=== PATIENT | male | born 1965 | race Caucasian/White ===

== ENCOUNTER 2017-07-09 19:54 | Emergency (ER) | payer OTHER ==
[~2017-07-09] VITALS: Ht 172.7 cm; Wt 93.0 kg
[~2017-07-09 19:54] MED LIST: AZITHROMYCIN 2250 MG PO; BACTRIM DS TAB1 EACH PO; BENADRYL25 MG PO; CLEOCIN HCL150 MG PO; COMBIVENT; COMBIVENT INH; DOXYCYCLINE 10100 MG PO; HYDROCODON-ACE1 EAC7 PO; HYDROCODONE-APA1 TA1 PO; IBUPROFEN 800800 M1; KEFLEX250 MG PO; KEFLEX500 MG PO; NOHOMEMEDICATIONS; NORCO 5-325 TA1 EACH PO; PREDNISONE50 MG PO; PRILOSEC 20 MG20 MG; PROAIR HFA8.5 GM IH; VENTOLIN17 GM INH; VICODIN 5-5001 EACH PO
[2017-07-09 19:57] VITALS: BP 119/72
[2017-07-09] MEDS ORDERED: ZPAK PO (20:15)
[2017-07-09] MEDS ORDERED: PREDNISONE 20 M20 M1 PO (20:15)
[2017-07-09] MEDS ORDERED: VENTOLIN HFA 1818 GM INH (20:15)
== END 2017-07-09 20:33 | disposition home or self-care (01) ==
LOC: M.ERS 19:54
DX: S20.361A Insect bite (nonvenomous) of right front wall of thorax, initial encounter (principal); J40 Bronchitis, not specified as acute or chronic; J44.9 Chronic obstructive pulmonary disease, unspecified; F17.210 Nicotine dependence, cigarettes, uncomplicated; Z88.0 Allergy status to penicillin; W57.XXXA Bitten or stung by nonvenomous insect and other nonvenomous arthropods, initial encounter; Y93.89 Activity, other specified; Y92.89 Other specified places as the place of occurrence of the external cause; Y99.8 Other external cause status

== ENCOUNTER 2017-10-14 18:37 | Emergency (ER) | payer OTHER ==
[~2017-10-14] VITALS: Ht 175.3 cm; Wt 90.7 kg
[~2017-10-14 18:37] MED LIST changes: +PREDNISONE 20 M20 M1 PO; +VENTOLIN HFA 1818 GM INH; +ZPAK PO
[2017-10-14] MEDS ORDERED: PAIN MEDS (18:48)
[2017-10-14 19:22] LABS: ABSOLUTE BASOPHILS 0.1 thou/uL (0.0-0.2); ABSOLUTE EOSINOPHILS 0.3 thou/uL (0.0-0.7); ABSOLUTE LYMPHOCYTES 1.6 thou/uL (0.8-5.3); ABSOLUTE MONOCYTES 0.6 thou/uL (0.0-1.2); ABSOLUTE NEUTROPHILS 6.3 thou/uL (1.6-8.1); BASOPHILS 0.7 %; EOSINOPHILS 3.3 %; HEMATOCRIT 45.5 % (42.0-52.0); HEMOGLOBIN 15.3 gm/dL (14.0-18.0); MCH 30.7 pg (26.0-34.0); MCHC 33.6 g/dL (28.0-37.0); MCV 91.6 fL (80.0-100.0); MONOCYTES 6.5 %; MPV 8.1 fl. (7.2-11.1); NUCLEATED RBCS 0 /100WBC; PLATELET COUNT* 276 thou/uL (150-400); POLYS 71.5 %; RBC 4.96 mil/uL (4.50-6.00); RDW-CV 13.2 % (10.5-14.5); WBC 8.9 thou/uL (4.0-11.0)
[2017-10-14 19:26] LABS: CREATININE 1.2 mg/dL (0.6-1.3); POTASSIUM 3.9 mmol/L (3.5-5.1)
[2017-10-14 19:32] LABS: ALBUMIN 3.2 g/dL (3.4-5.0); TOTAL BILIRUBIN 0.3 mg/dL (<0.1-1.0); TOTAL PROTEIN 7.1 g/dL (6.4-8.2)
[2017-10-14] MEDS ORDERED: KEFLEX500 M1 PO (19:36)
[2017-10-14] MEDS ORDERED: BACTRIM DS TAB1 EACH PO (19:36)
[2017-10-14] MEDS ORDERED: ALBUTEROL2.5 MG/31 INH (19:39)
[2017-10-14] MEDS ORDERED: NEBULIZER MISCELL (19:39)
[2017-10-14] MEDS ORDERED: ACETAMINOPHEN-1 EAC1 PO (19:39)
[2017-10-14 20:23] VITALS: BP 100/65
== END 2017-10-14 20:24 | disposition home or self-care (01) ==
LOC: M.ERS 18:37
PROVIDERS: Nurse Practitioner Family
DX: S80.862A Insect bite (nonvenomous), left lower leg, initial encounter (principal); S80.861A Insect bite (nonvenomous), right lower leg, initial encounter; J44.9 Chronic obstructive pulmonary disease, unspecified; M54.5 Low back pain; F17.210 Nicotine dependence, cigarettes, uncomplicated; Z88.0 Allergy status to penicillin; W57.XXXA Bitten or stung by nonvenomous insect and other nonvenomous arthropods, initial encounter; Y93.89 Activity, other specified; Y92.89 Other specified places as the place of occurrence of the external cause; Y99.8 Other external cause status

== ENCOUNTER 2018-03-03 13:15 | Emergency (ER) | payer OTHER ==
[~2018-03-03] VITALS: Ht 172.7 cm; Wt 95.3 kg
[~2018-03-03 13:15] MED LIST changes: +ACETAMINOPHEN-1 EAC1 PO; +ALBUTEROL2.5 MG/31 INH; +KEFLEX500 M1 PO; +NEBULIZER MISCELL; +PAIN MEDS
[2018-03-03 13:59] LABS: URINE BILIRUBIN NEGATIVE (Negative); URINE BLOOD NEGATIVE (Negative); URINE CLARITY CLEAR; URINE COLOR YELLOW; URINE GLUCOSE-RANDOM NEGATIVE (Negative); URINE KETONES NEGATIVE (Negative); URINE LEUKOCYTES-REFLEX NEGATIVE (Negative); URINE NITRITE-REFLEX NEGATIVE (Negative); URINE PROTEIN NEGATIVE (Negative); URINE SPECIFIC GRAVITY >= 1.030 (1.005-1.030); URINE UROBILINOGEN 0.2 E.U./dl (0.2-1.0)
[2018-03-03] MEDS ORDERED: MEDROLDOSEPACK PO (14:59)
[2018-03-03] MEDS ORDERED: NORCO 5-325 TA1 EACH PO (14:59)
[2018-03-03 15:08] VITALS: BP 128/91
== END 2018-03-03 15:09 | disposition home or self-care (01) ==
LOC: M.ERS 13:15
PROVIDERS: Physician Assistant
DX: M54.5 Low back pain (principal); M54.6 Pain in thoracic spine; M25.551 Pain in right hip; J44.9 Chronic obstructive pulmonary disease, unspecified; F17.210 Nicotine dependence, cigarettes, uncomplicated; Z88.0 Allergy status to penicillin

== ENCOUNTER 2018-11-25 03:53 | Emergency (ER) | payer OTHER ==
[~2018-11-25] VITALS: Ht 172.7 cm; Wt 99.8 kg
[~2018-11-25 03:53] MED LIST changes: +MEDROLDOSEPACK PO
[2018-11-25 05:14] LABS: ABSOLUTE EOSINOPHILS 0.3 thou/uL (0.0-0.7); ABSOLUTE LYMPHOCYTES 2.4 thou/uL (0.8-5.3); ABSOLUTE MONOCYTES 0.5 thou/uL (0.0-1.2); ABSOLUTE NEUTROPHILS 4.1 thou/uL (1.6-8.1); BASOPHILS 0.4 %; EOSINOPHILS 3.9 %; HEMATOCRIT 41.8 % (42.0-52.0); HEMOGLOBIN 13.8 gm/dL (14.0-18.0); LYMPHOCYTES 32.8 %; MCH 29.9 pg (26.0-34.0); MCHC 33.1 g/dL (28.0-37.0); MCV 90.4 fL (80.0-100.0); MONOCYTES 7.4 %; MPV 8.3 fl. (7.2-11.1); NUCLEATED RBCS 0 /100WBC; PLATELET COUNT* 221 thou/uL (150-400); POLYS 55.5 %; RBC 4.62 mil/uL (4.50-6.00); WBC 7.3 thou/uL (4.0-11.0)
[2018-11-25 05:44] LABS: ALBUMIN 3.4 g/dL (3.4-5.0); ALKALINE PHOSPHATASE 78 U/L (46-116); ANION GAP 10 mmol/L (7-16); BUN 25 mg/dL (7-18); CALCIUM 8.3 mg/dL (8.5-10.1); CHLORIDE 105 mmol/L (98-107); CO2 25 mmol/L (21-32); CREATININE 1.4 mg/dL (0.6-1.3); GLUCOSE 100 mg/dL (70-99); POTASSIUM 3.6 mmol/L (3.5-5.1); SGOT 13 U/L (15-37); SGPT 23 U/L (30-65); SODIUM 140 mmol/L (136-145); TOTAL BILIRUBIN 0.5 mg/dL (<0.1-1.0); TOTAL PROTEIN 6.5 g/dL (6.4-8.2); TROPONIN-I LEVEL <0.06 ng/mL (<0.06)
[2018-11-25] MEDS ORDERED: ALBUTEROL2.5 MG/31 INH (06:28)
[2018-11-25] MEDS ORDERED: PREDNISONE50 MG PO (06:28)
[2018-11-25 06:46] VITALS: BP 142/71
--- NOTE | 2018-11-25 17:21 | EKG ---
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 : 1965 Requested By: Flavia Knott Order Number: [id number] Silverio MD: Joselo Deutsch Measurements Intervals [place] Rate: 73 P: 73 CO: 168 QRS: 64 QRSD: 88 T: 71 QT: 365 QTc: 403 Interpretive Statements Sinus rhythm Low voltage, extremity and precordial leads Compared to ECG 01/05/2016 19:15:28 No significant changes Electronically Signed On 11-25-2018 17:21:07 CDT by Joselo Deutsch [email or web address] <ELECTRONICALLY SIGNED> By: Joselo Deutsch MD, [facility] 11/25/18 1721 0400 0400 Joselo Deutsch MD, FACC /EPI
== END 2018-11-25 06:42 | disposition home or self-care (01) ==
LOC: M.ERS 03:53
PROVIDERS: Emergency Medicine
DX: J44.1 Chronic obstructive pulmonary disease with (acute) exacerbation (principal); G89.29 Other chronic pain; M54.9 Dorsalgia, unspecified

== ENCOUNTER 2020-08-08 01:55 | Emergency (ER) | payer OTHER ==
[~2020-08-08] VITALS: Ht 175.3 cm; Wt 97.5 kg
[2020-08-08 02:49] LABS: BE -1.7 mmol/L (-2 to +3); PCO2 39.1 mmHg (35.0-45.0); PO2 100.4 mmHg (75.0-100.0); pH 7.388 (7.340-7.450)
[2020-08-08 02:52] LABS: ABSOLUTE EOSINOPHILS 0.1 thou/uL (0.0-0.7); ABSOLUTE LYMPHOCYTES 0.9 thou/uL (0.8-5.3); ABSOLUTE MONOCYTES 0.3 thou/uL (0.0-1.2); ABSOLUTE NEUTROPHILS 2.4 thou/uL (1.6-8.1); EOSINOPHILS 1.8 %; HEMOGLOBIN 14.3 gm/dL (14.0-18.0); NUCLEATED RBCS 0 /100WBC; WBC 3.7 thou/uL (4.0-11.0)
[2020-08-08 02:54] LABS: BASOPHILS 0.6 %; HEMATOCRIT 42.7 % (42.0-52.0); LYMPHOCYTES 25.4 %; MCH 30.1 pg (26.0-34.0); MCHC 33.5 g/dL (28.0-37.0); MCV 89.9 fL (80.0-100.0); MONOCYTES 7.6 %; MPV 8.1 fl. (7.2-11.1); PLATELET COUNT* 148 thou/uL (150-400); POLYS 64.6 %; RBC 4.74 mil/uL (4.50-6.00); RDW-CV 13.9 % (10.5-14.5)
[2020-08-08 02:59] LABS: CALCIUM 7.9 mg/dL (8.5-10.1); POTASSIUM 3.5 mmol/L (3.5-5.1)
[2020-08-08 03:03] LABS: MAGNESIUM 1.9 mg/dL (1.8-2.4); TOTAL BILIRUBIN 0.2 mg/dL (<0.1-1.0); TOTAL PROTEIN 6.2 g/dL (6.4-8.2)
[2020-08-08] MEDS ORDERED: PREDNISONE 20 M20 MG PO (03:43)
[2020-08-08] MEDS ORDERED: VENTOLIN HFA 1818 GM INH (03:43)
[2020-08-08 03:53] VITALS: BP 151/90
[2020-08-08] MEDS ORDERED: ALBUTEROL2.5 MG/31 INH (03:58)
--- NOTE | 2020-08-08 11:03 | EKG ---
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[place] : 1965 Requested By: Latricia Man Order Number: [id number] MD: Sandip Jc Measurements Intervals [place] Rate: 92 P: 82 ND: 171 QRS: 87 QRSD: 89 T: 80 QT: 357 QTc: 442 Interpretive Statements Sinus rhythm poor r wave progression Biatrial enlargement Low voltage, extremity and precordial leads Compared to ECG 11/25/2018 04:00:28 rate has increased Electronically Signed On 08-08-2020 11:03:16 CDT by Sandip Jc [email or web address] <ELECTRONICALLY SIGNED> By: Sandip Jc MD, [facility] 08/08/20 1103 0200 0200 Sandip Jc MD, [facility] /EPI
== END 2020-08-08 03:53 | disposition home or self-care (01) ==
LOC: M.ERS 01:55
PROVIDERS: Personal Emergency Response Attendant
DX: J44.1 Chronic obstructive pulmonary disease with (acute) exacerbation (principal); F41.9 Anxiety disorder, unspecified; M62.830 Muscle spasm of back; F17.210 Nicotine dependence, cigarettes, uncomplicated; F12.90 Cannabis use, unspecified, uncomplicated; Z88.0 Allergy status to penicillin; Z79.899 Other long term (current) drug therapy; Z98.890 Other specified postprocedural states

== ENCOUNTER 2021-02-08 19:30 | Emergency (ER) | payer OTHER ==
[~2021-02-08] VITALS: Ht 172.7 cm; Wt 99.8 kg
[~2021-02-08 19:30] MED LIST changes: +PREDNISONE 20 M20 MG PO
[2021-02-08 20:02] VITALS: BP 149/97
== END 2021-02-09 00:53 | disposition left against medical advice (07) ==
LOC: M.ERS 19:30
DX: M54.9 Dorsalgia, unspecified (principal); Z53.21 Procedure and treatment not carried out due to patient leaving prior to being seen by health care provider

== ENCOUNTER 2021-02-25 17:13 | Emergency (ER) | payer OTHER ==
[~2021-02-25] VITALS: Ht 172.7 cm; Wt 99.8 kg
[2021-02-25] MEDS ORDERED: MEDROLDOSEPACK PO (18:21)
[2021-02-25] MEDS ORDERED: NORFLEX100 MG PO (18:21)
[2021-02-25 18:43] VITALS: BP 118/87
== END 2021-02-25 18:44 | disposition home or self-care (01) ==
LOC: M.ERS 17:13
DX: M54.50 Low back pain, unspecified (principal); J44.9 Chronic obstructive pulmonary disease, unspecified; F17.210 Nicotine dependence, cigarettes, uncomplicated; Z88.0 Allergy status to penicillin